=== PATIENT | male | born 1990 | race African-American/Black ===

== ENCOUNTER 2019-11-12 12:41 | Emergency (ER) | payer MEDICAID ==
[~2019-11-12] VITALS: Ht 180.3 cm; Wt 91.0 kg
[2019-11-12] MEDS ORDERED: SODIUM CHLORIDE 0.9% 1,000 ML IV ONE (14:02)
[2019-11-12 14:17] LABS: BASOPHILS % 0.3 % (0.0-2.0); EOSINOPHILS % 0.2 % (0.0-5.0); HEMATOCRIT. 43.6 % (42.0-52.0); HEMOGLOBIN. 15.4 g/dL (14.0-18.0); LYMPHOCYTES % 11.6 % (20.0-50.0); MEAN CORPUSCULAR HEMOGLOBIN 30.4 pg (28.0-32.0); MEAN CORPUSCULAR VOLUME 85.8 fL (80.0-94.0); MEAN PLATELET VOLUME 9.2 fl (7.4-10.4); MONOCYTES % 6.3 % (2.0-8.0); NEUTROPHILS % 81.6 % (40.0-76.0); PLATELET 239 x1000/uL (130-400); RED BLOOD CELL COUNT 5.09 mill/uL (4.7-6.1); RED CELL DISTRIBUTION WIDTH 14.3 % (11.6-14.6)
[2019-11-12 14:20] LABS: CLARITY URINE CLEAR (CLEAR); COLOR URINE YELLOW (YELLOW); KETONES URINE NEGATIVE (NEGATIVE); LEUKOCYTE ESTERASE URINE NEGATIVE (NEGATIVE); NITRITE URINE NEGATIVE (NEGATIVE); OCCULT BLOOD URINE 1+ (NEGATIVE); PROTEIN URINE NEGATIVE (NEGATIVE); SPECIFIC GRAVITY URINE 1.006 (1.005-1.030); UROBILINOGEN URINE 0.2 E.U./dL (0.2-1.0)
[2019-11-12 14:27] LABS: CHLORIDE 105 mEq/L (98-107); INR 0.9; PARTIAL THROMBOPLASTIN TIME 21.5 sec (23.4-31.0); PROTHROMBIN TIME 10.2 sec (9.6-11.0)
[2019-11-12 14:31] LABS: ETHANOL BLOOD < 10 mg/dL
[2019-11-12 14:35] LABS: CREATINE KINASE 235 IU/L (39-308)
[2019-11-12 14:40] LABS: *BARBITURATES SCREEN URINE NEGATIVE (NEGATIVE)
[2019-11-12 14:41] LABS: *AMPHETAMINES SCREEN URINE NEGATIVE (NEGATIVE); *BENZODIAZEPINES SCREEN URINE NEGATIVE (NEGATIVE); *COCAINE SCREEN URINE NEGATIVE (NEGATIVE); CANNABINOID URINE SCREEN NEGATIVE (NEGATIVE); METHADONE URINE SCREEN NEGATIVE (NEGATIVE); OPIATES URINE SCREEN NEGATIVE (NEGATIVE); PHENCYCLIDINE URINE SCREEN NEGATIVE (NEGATIVE)
[2019-11-12] MEDS ORDERED: LORAZEPAM 2MG/ML CPJ ONE (15:44)
[2019-11-12] MEDS ORDERED: LORAZEPAM 2MG/ML CPJ IV ONE (15:45)
[2019-11-12] MEDS ORDERED: OLANZAPINE 10 MG/VIAL IM ONE (22:00)
[2019-11-13] MEDS ORDERED: HALOPERIDOL 5MG TABLET PO ONE (01:30)
[2019-11-13] MEDS ORDERED: LORAZEPAM 2MG/ML CPJ IV ONE (01:30)
[2019-11-13] MEDS ORDERED: HALOPERIDOL LACTATE 5MG/ML VIAL IM SCH (01:33)
[2019-11-13] MEDS ORDERED: LORAZEPAM 2MG/ML CPJ IV SCH (01:34)
[2019-11-13] MEDS ORDERED: OLANZAPINE 10 MG/VIAL IM ONE (09:15)
[2019-11-14 16:04] VITALS: BP 110/64
== END 2019-11-14 16:40 | disposition home or self-care (01) ==
LOC: ER 12:57 → EDBD 12:57 → ER 11-14 16:40
DX: F23 Brief psychotic disorder (principal); F31.9 Bipolar disorder, unspecified
CPT/HCPCS: 36415; 70450; 71045; 80053; 80305; 80307; 80320; 80329; 81003; 82550; 82962; 84443; 84484; 85025; 85610; 85730; 86850; 86900; 86901; 93005; 96372; 96374; 96376; 99285; J1630; J2060; J3490; J7030; G0480